=== PATIENT | male | born 1995 | race Two or more races ===

== ENCOUNTER → 2024-01-20 | Outpatient (CLI) | payer OTHER ==
--- NOTE | 2024-01-20 10:14 | XR ---
EXAMINATION TYPE: XR chest 2V DATE OF EXAM: 01/20/2024 9:43 AM COMPARISON: None CLINICAL INDICATION: Male, 28 years old with history of S20.212A chest contusion; [facility] TECHNIQUE: XR chest 2V Frontal and lateral views of the chest. FINDINGS: Lungs/Pleura: There is no evidence of pleural effusion, focal consolidation, or pneumothorax. Pulmonary vascularity: Unremarkable. Heart/mediastinum: Cardiomediastinal silhouette is unremarkable. Musculoskeletal: No acute osseous pathology. Other findings: None IMPRESSION: No acute cardiopulmonary disease/process. [facility], , 01/20/2024 10:11 AM
--- NOTE | 2024-01-20 10:14 | XR ---
EXAMINATION TYPE: XR shoulder complete LT DATE OF EXAM: 01/20/2024 9:43 AM COMPARISON: None CLINICAL INDICATION: Male, 28 years old with history of S40.012A shoulder contusion; [facility] TECHNIQUE: XR shoulder complete LT; examined in AP, internally rotated and scapular Y projections. FINDINGS: No evidence of acute osseous pathology, joint dislocation, or soft tissue swelling. The remaining po rtions of the visualized chest are unremarkable. IMPRESSION: No acute osseous pathology. [facility], , 01/20/2024 10:11 AM
--- NOTE | 2024-01-20 10:15 | XR ---
EXAMINATION TYPE: XR humerus LT DATE OF EXAM: 01/20/2024 9:43 AM COMPARISON: 01/20/2024 CLINICAL INDICATION: Male, 28 years old with history of S40.022A contusion Humerus; [facility] TECHNIQUE: XR humerus LT examined in frontal and lateral projections. FINDINGS: No evidence of acute osseous pathology, joint dislocation, or soft tissue swelling. The rem aining portions of the visualized chest are unremarkable. IMPRESSION: No acute osseous pathology. [facility], , 01/20/2024 10:12 AM
--- NOTE | 2024-01-20 10:17 | XR ---
EXAMINATION TYPE: XR ribs LT DATE OF EXAM: 01/20/2024 9:43 AM COMPARISON: None CLINICAL INDICATION: Male, 28 years old with history of S20.212A chest contusion; [facility] TECHNIQUE: XR ribs LT; Frontal and oblique views of the ribs with frontal chest radiograph. FINDINGS: The ribs have a normal appearance. No evidence of fracture. Overall, the lungs are clear. The cardiac silhouette is normal in size. The remaining osseous structures are intact. IMPRESSION: No acute osseous pathology. [facility], , 01/20/2024 10:14 AM
== END | disposition home or self-care (01) ==
LOC: RADXRMAIN 09:14
PROVIDERS: ATTEND Emergency Medicine
CPT/HCPCS: 71046